=== PATIENT | male | born 1940 | race Caucasian/White ===

== ENCOUNTER 2016-12-26 08:58 | Outpatient (CLI) | payer MEDICARE, OTHER | END 2016-12-26 08:59 | disposition home or self-care (01) | DX: I48.91 Unspecified atrial fibrillation (principal); E11.9 Type 2 diabetes mellitus without complications; N40.1 Benign prostatic hyperplasia with lower urinary tract symptoms; D64.9 Anemia, unspecified ==

== ENCOUNTER 2018-01-19 07:27 | Outpatient (CLI) | payer MEDICARE, OTHER ==
[2018-01-19 12:43] LABS: BASOPHILS % (AUTO) 0.8 %; EOSINOPHILS # (AUTO) 0.3 10^3/uL (0.0-0.7); EOSINOPHILS % (AUTO) 5.5 %; HGB - HEMOGLOBIN 13.6 g/dL (14.0-18.0); LYMPHOCYTES # (AUTO) 2.5 10^3/uL (1.5-3.5); LYMPHOCYTES % (AUTO) 42.2 %; MEAN CORPUSCULAR HGB CONC 34.1 g/dL (32.0-36.0); MEAN PLATELET VOLUME 10.5 fL (7.4-11.4); MONOCYTES # (AUTO) 0.6 10^3/uL (0.0-1.0); MONOCYTES % (AUTO) 9.5 %; NEUTROPHILS # (AUTO) 2.4 10^3/uL (1.5-6.6); PLT - PLATELET COUNT 165 10^3/uL (130-450); RED BLOOD COUNT 4.54 10^6/uL (4.70-6.10); RED CELL DISTRIBUTION WIDTH 14.9 % (12.0-15.0); WHITE BLOOD COUNT 5.8 x10^3/uL (4.8-10.8)
[2018-01-19 13:00] LABS: HB2 TOTAL 14.5 g/dL; HEMOGLOBIN A1C 0.55 g/dL; HEMOGLOBIN A1C % 5.6 % (4.6-6.2)
[2018-01-19 13:22] LABS: CALCIUM 9.1 mg/dL (8.5-10.3); CREATININE 1.1 mg/dL (0.6-1.2)
== END 2018-01-19 07:28 | disposition home or self-care (01) ==
LOC: LAB.WCP 07:27
PROVIDERS: ATTEND Family Medicine
DX: I48.91 Unspecified atrial fibrillation (principal); E11.9 Type 2 diabetes mellitus without complications; D64.9 Anemia, unspecified; R97.20 Elevated prostate specific antigen [PSA]
CPT/HCPCS: 36415; 80048; 83036; 84153; 85025

== ENCOUNTER 2019-02-01 07:59 | Outpatient (CLI) | payer MEDICARE, OTHER ==
[2019-02-01 13:13] LABS: PSA FREE 0.77 ng/mL (0.16-2.81)
[2019-02-01 13:14] LABS: BASOPHILS % (AUTO) 0.3 %; EOSINOPHILS # (AUTO) 0.2 10^3/uL (0.0-0.7); EOSINOPHILS % (AUTO) 3.3 %; HGB - HEMOGLOBIN 13.6 g/dL (14.0-18.0); LYMPHOCYTES # (AUTO) 2.6 10^3/uL (1.5-3.5); LYMPHOCYTES % (AUTO) 42.5 %; MEAN CORPUSCULAR HEMOGLOBIN 29.7 pg (27.0-31.0); MEAN CORPUSCULAR HGB CONC 33.1 g/dL (32.0-36.0); MEAN CORPUSCULAR VOLUME 89.6 fL (80.0-94.0); MEAN PLATELET VOLUME 10.9 fL (7.4-11.4); MONOCYTES # (AUTO) 0.7 10^3/uL (0.0-1.0); MONOCYTES % (AUTO) 10.4 %; NEUTROPHILS # (AUTO) 2.7 10^3/uL (1.5-6.6); NEUTROPHILS % (AUTO) 43.5 %; PLT - PLATELET COUNT 196 10^3/uL (130-450); RED BLOOD COUNT 4.59 10^6/uL (4.70-6.10); RED CELL DISTRIBUTION WIDTH 14.8 % (12.0-15.0); WHITE BLOOD COUNT 6.2 x10^3/uL (4.8-10.8)
[2019-02-01 13:15] LABS: ALBUMIN/GLOBULIN RATIO 1.1 (1.0-2.2); ALKALINE PHOSPHATASE 43 IU/L (42-121); ALT ALANINE AMINOTRANSFERASE 17 IU/L (10-60); AST ASPARTATE AMINOTRANSFERASE 20 IU/L (10-42); BILIRUBIN,TOTAL 0.7 mg/dL (0.2-1.0); BUN - BLOOD UREA NITROGEN 25 mg/dL (6-20); CALCIUM 9.2 mg/dL (8.5-10.3); CARBON DIOXIDE - CO2 27 mmol/L (21-32); CHLORIDE 103 mmol/L (101-111); CHOL/HDL RATIO 3.4 (<5.0); CHOLESTEROL 181 mg/dL; GFR - MDRD 72 (>89); GLUCOSE 119 mg/dL (70-100); HDL CHOLESTEROL 53 mg/dL; LDL CHOLESTEROL,CALCULATED 107 mg/dL; PSA TOTAL 4.19 ng/mL (0.000-2.000); SODIUM 139 mmol/L (135-145); TOTAL PROTEIN 7.6 g/dL (6.7-8.2); VLDL CHOLESTEROL 21 mg/dL
[2019-02-01 13:29] LABS: HB2 TOTAL 14.9 g/dL; HEMOGLOBIN A1C 0.64 g/dL; HEMOGLOBIN A1C % 6.1 % (4.6-6.2)
[2019-02-01 13:45] LABS: PLATELET MORPHOLOGY 1+ GIANT PLATELETS (NORMAL)
[2019-02-01 13:46] LABS: PLATELET ESTIMATE, MANUAL NORMAL (130-450,000) (NORMAL); RBC MORPHOLOGY (MULTIPLE) NORMAL APPEARANCE (NORMAL)
== END 2019-02-01 08:00 | disposition home or self-care (01) ==
LOC: LAB.WCP 07:59
PROVIDERS: ATTEND Family Medicine
DX: E11.9 Type 2 diabetes mellitus without complications (principal); R97.20 Elevated prostate specific antigen [PSA]; E78.5 Hyperlipidemia, unspecified; D64.9 Anemia, unspecified
CPT/HCPCS: 36415; 80053; 80061; 83036; 83721; 84153; 84154; 85025

== ENCOUNTER 2019-06-15 08:00 | Outpatient (CLI) | payer MEDICARE, OTHER ==
[2019-06-15 13:16] LABS: ALBUMIN 3.9 g/dL (3.2-5.5); ALBUMIN/GLOBULIN RATIO 1.1 (1.0-2.2); CALCIUM 9.3 mg/dL (8.5-10.3); CREATININE 0.9 mg/dL (0.6-1.2); TOTAL PROTEIN 7.6 g/dL (6.7-8.2)
== END 2019-06-15 23:59 | disposition home or self-care (01) ==
LOC: LAB.WCP 08:00
PROVIDERS: ATTEND Internal Medicine Cardiovascular Disease
DX: I48.0 Paroxysmal atrial fibrillation (principal); I10 Essential (primary) hypertension
CPT/HCPCS: 36415; 80053

== ENCOUNTER 2020-06-06 06:47 | Outpatient (CLI) | payer MEDICARE, OTHER ==
--- NOTE | 2020-06-06 09:01 | Ultrasound Report ---
PROCEDURE: Aorta Screening INDICATIONS: NICOTINE ADDICTION IN REMISSION TECHNIQUE: Real time scanning was performed of the aorta and iliac arteries, with image documentatio n. COMPARISON: None. FINDINGS: Scattered vascular calcifications are present in the aorta. Aorta: Proximal aortic diameter measures 2.7 cm. Mid-aorta measures 2.7 cm. Distal aortic diameter is 2.1 cm. Iliac arteries: Right common iliac artery measures 1.7 cm. Left common iliac artery measures 1.4 cm . IMPRESSION: Diffuse atherosclerotic plaque. No aneurysm identified Reviewed by: Giles Covarrubias MD on 06/06/2020 9:00 AM PDT Approved by: Giles Covarrubias MD on 06/06/2020 9:00 AM PDT Station ID: [id number]
== END 2020-06-06 06:48 | disposition home or self-care (01) ==
LOC: DI 06:47
PROVIDERS: ATTEND Family Medicine
DX: I70.0 Atherosclerosis of aorta (principal)
CPT/HCPCS: 76706

== ENCOUNTER 2020-10-23 08:00 | Outpatient (CLI) | payer MEDICARE, OTHER ==
[2020-10-23 18:59] LABS: ALBUMIN 4.3 g/dL (3.2-5.5); ALBUMIN/GLOBULIN RATIO 1.1 (1.0-2.2); BILIRUBIN,TOTAL 0.7 mg/dL (0.2-1.0); CALCIUM 9.5 mg/dL (8.5-10.3); CREATININE 0.9 mg/dL (0.6-1.2); TOTAL PROTEIN 8.3 g/dL (6.7-8.2)
[2020-10-23 20:30] LABS: HEMOGLOBIN A1c% 6.9 % (4.27-6.07)
== END 2020-10-23 23:59 | disposition home or self-care (01) ==
LOC: LAB.WCP 08:00
PROVIDERS: ATTEND Family Medicine
DX: E11.9 Type 2 diabetes mellitus without complications (principal)
CPT/HCPCS: 36415; 80053; 83036

== ENCOUNTER 2021-06-04 16:21 | Outpatient (CLI) | payer MEDICARE, OTHER ==
[2021-06-04 21:28] LABS: CREATININE,URINE 141.2 mg/dL; MICROALBUM/CREATININE RATIO,UR 2.1 ug/mg (<30.0); MICROALBUMIN,URINE 0.3 mg/dL (0-300.0)
[2021-06-04 21:30] LABS: ALBUMIN 4.3 g/dL (3.2-5.5); ALBUMIN/GLOBULIN RATIO 1.1 (1.0-2.2); ALKALINE PHOSPHATASE 62 IU/L (42-121); ALT ALANINE AMINOTRANSFERASE 26 IU/L (10-60); AST ASPARTATE AMINOTRANSFERASE 31 IU/L (10-42); BILIRUBIN,TOTAL 0.9 mg/dL (0.2-1.0); BUN - BLOOD UREA NITROGEN 20 mg/dL (6-20); CALCIUM 9.8 mg/dL (8.5-10.3); CARBON DIOXIDE - CO2 26 mmol/L (21-32); CHLORIDE 105 mmol/L (101-111); CHOLESTEROL 192 mg/dL; CREATININE 0.9 mg/dL (0.6-1.2); GFR - MDRD 81 (>89); GLUCOSE 118 mg/dL (70-100); HDL CHOLESTEROL 64 mg/dL; LDL CHOLESTEROL,CALCULATED 108 mg/dL; LDL/HDL RATIO 1.7 (<3.6); MAGNESIUM 2.3 mg/dL (1.7-2.8); POTASSIUM 4.5 mmol/L (3.5-5.0); SODIUM 141 mmol/L (135-145); TOTAL PROTEIN 8.1 g/dL (6.7-8.2); TRIGLYCERIDES 102 mg/dL; VLDL CHOLESTEROL 20 mg/dL
[2021-06-05 11:52] LABS: ESTIMATED AVERAGE GLUCOSE 151 mg/dL (70-100); HEMOGLOBIN A1c% 6.9 % (4.27-6.07)
== END 2021-06-04 16:22 | disposition home or self-care (01) ==
LOC: LAB.N 16:21
PROVIDERS: ATTEND Family Medicine
DX: E11.9 Type 2 diabetes mellitus without complications (principal); E83.42 Hypomagnesemia; M10.9 Gout, unspecified
CPT/HCPCS: 36415; 80053; 80061; 82043; 82570; 83036; 83721; 83735; 84550

== ENCOUNTER 2021-08-22 09:38 | Outpatient (CLI) | payer MEDICARE, OTHER ==
[2021-08-22 10:29] VITALS: BP 142/74
--- NOTE | 2021-08-22 10:29 | SLEEP CARE CONSULTATION ---
Information from patient questionnaire entered by Jing Bolanos MA. I have reviewed and concur with the information entered by Jing Bolanos MA. This document represents the service I personally performed and the decisions made by , Heather Claros ARNP. History of Present Illness Service Date and Time: 08/22/2021 0983 Reason for Visit: New patient, Previously diagnosed sleep apnea, sleep apnea on CPAP therapy Chief Complaint: reports: Other (update supplies) Usual bedtime: 11 pm Time it takes to fall asleep: 10 minutes Snores at night: Yes Observed to quit breathing while asleep: Yes Sleeps alone due to snoring: No Number of times waking at night: 2 Reasons for waking at night: reports: Bathroom Toss, Turn, or Twitch while sleeping: No Recalls having dreams: Yes Usually gets out of bed at: 0730 Feels refreshed in the morning: Yes Morning headache: No Sleepy or fatigued during the day: No Ever fallen asleep while driving: No Takes day naps: No Prior sleep studies: Yes Additional HPI information: ROCKY MARTINEZ was previously diagnosed to have moderate, AHI 22.6, obstructive sleep apnea-hypopnea syndrome and comes in today to establish care for CPAP therapy. - Parasomnia Symptoms Ever been unable to move upon waking from sleep: No Walks in sleep: No Talks in sleep: No Ever acted out dreams in sleep: No Ever felt weak in the knees when startled or emotional: No Bothered by creepy, crawly, restless sensations in legs: No Problems with memory or concentration: No CPAP Compliance Data - Data Reviewed with Patient Average duration of nightly device use: 8 hours 18 minutes Compliance rate %: 99.4 Current pressure setting (cmH2O): 10.0 Average residual AHI: 12.3 Average large leak: 24 minutes 24 seconds Compliance data discussion: He is using a REMstar 60 series. He is using a full face mask that is causing skin irritation/ rash on his chin. He would like to try nasal mask that fits over his nose. He would also like to update his device. He uses [employer] to get his supplies. Subjective Patient concerns: reports: dry mouth, nose, throat (may be due to medications he takes), other (rash on chin). denies: aerophagia, mask discomfort, air blowing in eyes, mask leak noise, condensation in mask/hose, nasal congestion, epistaxis Observed to snore while using device: No Current pressure setting perceived as: comfortable On therapy, patient: reports: sleeping better, awakening more refreshed, being more awake and alert during the day, more rested overall. denies: drowsiness while driving Initial [place] Sleepiness Scale score: 3 (2020) Past Medical History Past Medical History: reports: Hypertension, Arrythmia, GERD, Other (tremors) Social History The patient's occupation is a RE. Patient is and lives in . Have you smoked in the past 12 months: No Cigarettes per day (20/pack): 40 Years of smokin Quit date: 1988 Smoking Pack Years: 60.0 Alcohol use: Yes Alcohol amount and frequency: 3 glasses a wine, 4 a week Caffeine use: Yes Caffeine amount and frequency: 1 cup daily Family History Family history of sleep disordered breathing: No Allergies and Home Medications Drug allergies reviewed: Yes (NKDA) Home medication list reviewed: Yes Allergy and home medication list: Pantoprazole Areds 2 Propranolol Primidone Xarelto Potassium Furosemide Tamsulosin Vitamin D Magnesium Tylenol PM, prn Allopurinol Review of Systems Weight loss over past 5 years: 10 Cardiovascular: reports: high blood pressure Gastrointestinal: reports: heartburn, other (gerd) Urinary: reports: frequency Musculoskeletal: reports: neck pain, back pain Physical Exam Vital signs obtained and entered by: Cici SEGURAMA Blood Pressure: 142/74 (left) Cuff size: wrist Heart Rate: 70 O2 Saturation: 93 (with mask) Height: 5 ft 8 in Weight: 245 lb (with boots) Body Mass Index: 37.2 BMI Classification: Obese Heart: regular rate and rhythm Lungs: clear bilaterally Impression and Plan 1. Obstructive Sleep Apnea-Hypopnea Syndrome, moderate, with good treatment compliance and fair apnea control. On CPAP therapy, the patient has better sleep quality and is more rested overall. Patient is satisfied with current CPAP therapy. He would like to change to a nasal mask because the full face mask is causing a rash on his chin. He does clean it regularly. I will write for a mask refitting for the nasal over the nose cushion mask that he used in past with good results. The patients pressure will be changed to autoCPAP 12 cmH20 for elevation of residual AHI. Patient advised to contact me if pressure change is uncomfortable so that it can be adjusted. Goals for apnea control discussed. I informed the patient that [employer] has a recall on several devices like the patients machine. Patient denies any black particles seen in machine or hoses, any unusual odors coming from device. Patient has not experienced any physical symptoms such as upper airway irritation, headache, skin or eye irritation, asthma, nausea/vomiting, difficulty breathing or chest pain. If patient is not able to sleep due to waking up choking, gasping for air or other respiratory distress that they may decide to continue using it until it is either replaced or repaired. Since the patients current machine is at least 5 years old the patient is opting to update their device with a device that is not on the recall. Patient voiced understanding and agreement with plan. Patient's apnea severity and rationale for treatment to reduce apnea, improve sleep quality and reduce cardiovascular and cerebrovascular events was reviewed. I also reviewed the benefit of consistent device use of CPAP for hypertension, arrhythmia and gastric reflux. Patient has lost about 10 pounds since May. He has been walking about 1.5 miles a day. Patient was encouraged to continue to try to lose weight for their overall health and to reduce apneas. * Change auto CPAP pressure to 12 cmH2O * Update device * Mask refitting for a nasal cushion mask, over the nose ([facility]) * Update supplies as needed * Notify me if snoring with mask or feeling that the pressure is too much or too little * Continue to try to lose weight * Call this office if any problems using CPAP * Return for follow up one month after obtaining new device, or sooner if concerns arise Counseling Topics: Spare mask, Weight loss health impact Visit Type: In Office Time Spent with Patient (minutes): 31 Provider Statement: I spent 100% of the Face to Face Visit with the patient with greater than 50% spent counseling the patient and coordination of care.
== END 2021-08-22 09:39 | disposition home or self-care (01) ==
LOC: SC 09:38
PROVIDERS: ATTEND Nurse Practitioner Family
DX: G47.33 Obstructive sleep apnea (adult) (pediatric) (principal); E66.9 Obesity, unspecified; Z68.37 Body mass index [BMI] 37.0-37.9, adult
CPT/HCPCS: 99203; G0463; 99212

== ENCOUNTER 2021-08-27 20:48 | Outpatient (CLI) | payer MEDICARE, OTHER | END 2021-08-27 20:49 | disposition EMS.NT | LOC: EMS 20:48 | DX: S00.01XA Abrasion of scalp, initial encounter (principal); W22.01XA Walked into wall, initial encounter; Y93.01 Activity, walking, marching and hiking; Y92.009 Unspecified place in unspecified non-institutional (private) residence as the place of occurrence of the external cause ==

== ENCOUNTER 2021-11-01 15:39 | Outpatient (CLI) | payer MEDICARE, OTHER ==
--- NOTE | 2021-11-01 18:06 | CT Report ---
PROCEDURE: HEAD WO INDICATIONS: ESSENTIAL TREMOR TECHNIQUE: Noncontrast 4.5 mm thick angled axial sections acquired from the foramen magnum to the vertex. For r adiation dose reduction, the following was used: automated exposure control, adjustment of mA and/or kV according to patient size. COMPARISON: None. FINDINGS: Image quality: Excellent. CSF spaces: Basal cisterns are patent. No extra-axial fluid collections. Ventricles are normal in size and shape. Brain: No midline shift. No intracranial masses or hemorrhage. Elizondo-white matter interface is norm al. Age-appropriate brain parenchymal volume loss and chronic small vessel ischemic change can be se en. Skull and face: Calvarium and visualized facial bones are intact, without suspicious lesions. Sinuses: Visualized sinuses and mastoids are clear. IMPRESSION: Unremarkable noncontrast head CT for age, with note made of brain parenchymal volume loss and chronic small vessel ischemic change. Reviewed by: Andrew Ha MD on 11/01/2021 5:05 PM [facility] Approved by: Andrew Ha MD on 11/01/2021 5:05 PM [facility] Station ID: [id number]
== END 2021-11-01 15:40 | disposition home or self-care (01) ==
LOC: DI 15:39
PROVIDERS: ATTEND Neurological Surgery
DX: G25.0 Essential tremor (principal); G31.89 Other specified degenerative diseases of nervous system; I67.82 Cerebral ischemia

== ENCOUNTER 2023-07-21 11:20 | Outpatient (CLI) | payer MEDICARE, OTHER ==
[2023-07-21 11:03] VITALS: BP 120/72
--- NOTE | 2023-07-21 11:09 | SLEEP CARE CONSULTATION ---
History of Present Illness Service Date and Time: 07/21/2023 1040 Previous diagnosis: Moderate, Obstructive Sleep Apnea-Hypopnea Syndrome AHI: 22.6 (in 2006) Reason for follow up: annual (Aug 2021) Equipment type: CPAP (ResMed Airsense 11, s/u 01/2022) Equipment obtained from: [employer] (getting supplies as needed) Mask style: Full face Mask brand: Resmed (Airtouch [id number]) Backup mask available: Yes Last cushion change: Jun 12 Prior sleep studies: Yes Year and Where: [facility] 2006 Sleep Study - Results Prior sleep studies: Yes CPAP Compliance Data - Data Reviewed with Patient Average duration of nightly device use: 7 hours 19 minutes Compliance rate %: 99 (183/184 days used; 01/2023-07/21/2023) Current pressure setting (cmH2O): 12 Average residual AHI: 5.6 (unknown 2) Central apnea: 0.7 Obstructive apnea: 1.7 Hypopnea: 1.2 Average large leak: 33.6 L/min Subjective Patient concerns: denies: aerophagia, mask discomfort, air blowing in eyes, mask leak noise, condensation in mask/hose, nasal congestion, dry mouth, nose, throat, epistaxis Observed to snore while using device: No Current pressure setting perceived as: comfortable On therapy, patient: reports: sleeping better, awakening more refreshed, being more awake and alert during the day, more rested overall. denies: drowsiness while driving Initial [place] Sleepiness Scale score: 3 (2020) Current [place] Sleepiness Scale score: 5 Allergies and Home Medications Known drug allergies: No Drug allergies reviewed: Yes Home medication list reviewed: Yes (no changes) Allergy and home medication list: Allergies No Known Drug Allergies Allergy Review of Systems Review of systems same as previous: Yes (no changes) Physical Exam Vital signs obtained and entered by: Heather Panchal NP Blood Pressure: 120/72 (per pt) Height: 5 ft 9 in (per pt) Weight: 220 lb (per pt) Weight change since last visit: 25 lb loss Body Mass Index: 32.5 BMI Classification: Obese Impression and Plan 1. Obstructive Sleep Apnea-Hypopnea Syndrome, moderate, with good treatment compliance and good apnea control with minimally elevated residual AHI. On CPAP therapy, the patient has better sleep quality and is more rested overall. He states he just needs supplies today. He does have a minimally elevated residual AHI but he is getting good therapy and I do not feel we need to make any changes today. Patient has significant improvement of their sleep apnea and is satisfied with current CPAP therapy. Patient denies problems with oral dryness, nasal congestion, epistaxis, skin irritation or aerophagia. Patient's apnea severity and rationale for treatment to reduce apnea, improve sleep quality and reduce cardiovascular and cerebrovascular events was reviewed. I also reviewed the benefit of consistent device use of CPAP for hypertension, arrhythmia and gastric reflux. 2. Obesity, unspecified. Currently patients BMI is 32.5. He has lost weight by walking every day and cutting back on alcohol. Is watching what he eats. Obesity increases the risk of apnea, CPAP pressure requirements and overall health risks especially cardiovascular and diabetes. Thus patient is advised to continue to try to lose weight. * Continue auto CPAP pressure at 12 cmH2O * Update supply prescription * Notify me if snoring with mask or feeling that the pressure is too much or too little * Attempt to lose weight * Call this office if any problems using CPAP * Return for follow up in 1 year, or sooner if concerns arise Counseling Topics: Spare mask, Weight loss health impact Prescriptions: Device supplies Follow up with Sleep Care in: 1 year Visit Type: Telehealth Phone Video Type: Sana Patient Location: Home Location of Provider: Office Patient agrees and consents to this telehealth visit type: Yes Patient agrees to have their insurance billed: Yes Time Spent with Patient (minutes): 20 Provider Statement: I spent 100% of the Telehealth Phone Call with the patient with greater than 50% spent counseling the patient and coordination of care.
== END 2023-07-21 11:21 | disposition home or self-care (01) ==
LOC: SC 11:20
PROVIDERS: ATTEND Nurse Practitioner Family
DX: G47.33 Obstructive sleep apnea (adult) (pediatric) (principal); E66.9 Obesity, unspecified; Z68.32 Body mass index [BMI] 32.0-32.9, adult

== ENCOUNTER 2023-09-11 07:58 | Outpatient (CLI) | payer MEDICARE, OTHER ==
[2023-09-11 12:28] LABS: BASOPHILS # (AUTO) 0.1 10^3/uL (0.0-0.1); BASOPHILS % (AUTO) 0.7 %; EOSINOPHILS # (AUTO) 0.2 10^3/uL (0.0-0.7); EOSINOPHILS % (AUTO) 3.1 %; HCT - HEMATOCRIT 39.5 % (42.0-52.0); LYMPHOCYTES # (AUTO) 2.8 10^3/uL (1.5-3.5); LYMPHOCYTES % (AUTO) 41.8 %; MEAN CORPUSCULAR HEMOGLOBIN 29.1 pg (27.0-31.0); MEAN CORPUSCULAR HGB CONC 32.9 g/dL (32.0-36.0); MEAN CORPUSCULAR VOLUME 88.6 fL (80.0-94.0); MEAN PLATELET VOLUME 12.2 fL (7.4-11.4); MONOCYTES # (AUTO) 0.6 10^3/uL (0.0-1.0); MONOCYTES % (AUTO) 9.5 %; NEUTROPHILS % (AUTO) 44.6 %; PLT - PLATELET COUNT 220 10^3/uL (130-450); RED BLOOD COUNT 4.46 10^6/uL (4.70-6.10); RED CELL DISTRIBUTION WIDTH 14.6 % (12.0-15.0); WHITE BLOOD COUNT 6.7 x10^3/uL (4.8-10.8)
[2023-09-11 12:49] LABS: ALBUMIN 4.2 g/dL (3.2-5.5); ALBUMIN/GLOBULIN RATIO 1.3 (1.0-2.2); ALKALINE PHOSPHATASE 47 IU/L (42-121); ALT ALANINE AMINOTRANSFERASE 9 IU/L (10-60); AST ASPARTATE AMINOTRANSFERASE 16 IU/L (10-42); BILIRUBIN,TOTAL 0.5 mg/dL (0.2-1.0); BUN - BLOOD UREA NITROGEN 17 mg/dL (6-20); CALCIUM 9.7 mg/dL (8.5-10.3); CARBON DIOXIDE - CO2 28 mmol/L (21-32); CHLORIDE 105 mmol/L (101-111); CHOL/HDL RATIO 3.3 (<5.0); CHOLESTEROL 173 mg/dL; CREATININE 0.9 mg/dL (0.6-1.3); GFR - MDRD 81 (>89); GLUCOSE 127 mg/dL (74-104); HDL CHOLESTEROL 53 mg/dL; LDL CHOLESTEROL,CALCULATED 106 mg/dL; POTASSIUM 4.2 mmol/L (3.5-4.5); SODIUM 140 mmol/L (135-145); TOTAL PROTEIN 7.4 g/dL (6.4-8.9); TRIGLYCERIDES 72 mg/dL (48-352); URIC ACID 7.1 mg/dL (4.4-7.6); VLDL CHOLESTEROL 14 mg/dL
[2023-09-11 13:07] LABS: THYROID STIMULATING HORMONE 2.69 uIU/mL (0.34-5.60)
[2023-09-11 13:11] LABS: ESTIMATED AVERAGE GLUCOSE 134 mg/dL (70-100); HEMOGLOBIN A1c% 6.3 % (4.27-6.07)
== END 2023-09-11 07:59 | disposition home or self-care (01) ==
LOC: LAB.N 07:58
PROVIDERS: ATTEND Physician Assistant
DX: I10 Essential (primary) hypertension (principal); E11.39 Type 2 diabetes mellitus with other diabetic ophthalmic complication; R97.20 Elevated prostate specific antigen [PSA]; M10.9 Gout, unspecified
CPT/HCPCS: 36415; 80053; 80061; 83036; 83721; 84153; 84443; 84550; 85025

== ENCOUNTER 2024-02-11 10:37 | Outpatient (CLI) | payer MEDICARE, OTHER | END 2024-02-11 10:38 | disposition home or self-care (01) | LOC: LAB.N 10:37 | PROVIDERS: ATTEND Physician Assistant Medical | DX: R97.20 Elevated prostate specific antigen [PSA] (principal) | CPT/HCPCS: 36415; 84153; 84154 ==

== ENCOUNTER 2024-03-25 08:59 | Outpatient (CLI) | payer MEDICARE, OTHER ==
--- NOTE | 2024-03-25 09:51 | XRAY Report ---
PROCEDURE: Foot 3+V LT INDICATIONS: LEFT FOOT PAIN TECHNIQUE: 3 views of the foot were acquired. COMPARISON: None. FINDINGS: Bones: There is suggestion of hammertoe deformities involving second and third toe and mild hallux va lgus with weightbearing. Mild to moderate left foot joint osteoarthritic changes are seen more notabl y involving TMT joints and interphalangeal joints. No fractures or dislocations. No suspicious bony lesions. Well-defined plantar calcaneal enthesophyte is seen. Soft tissues: No tibiotalar joint effusion. Achilles tendon appears normal. 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 Mild hallux valgus and hammertoe deformities involving sec ond and third toes. No fracture or dislocation. Calcaneal enthesophytes. Reviewed by: Mykel Null MD on 03/25/2024 9:49 AM PDT Approved by: Mykel Null MD on 03/25/2024 9:49 AM PDT Station ID: [id number]
--- NOTE | 2024-03-25 10:14 | XRAY Report ---
PROCEDURE: Hand 3+V LT INDICATIONS: LEFT HAND PAIN TECHNIQUE: 3 views of the hand(s) acquired. COMPARISON: None. FINDINGS: Bones: No fractures or dislocations. Moderate osteoarthritic changes throughout left hand and wrist joints are seen most notably involving scaphotrapezial joint and first CMC joint . Subtle subcortical radiolucencies are noted throughout carpal bones, third and fourth metacarpal bases, and possibly fi rst, third and fourth metacarpal heads. No suspicious bony lesions. Soft tissues: No suspicious soft tissue calcifications or masses. IMPRESSION: Moderate left hand and wrist joint osteoarthritis most notably involving first CMC joint and scaphotr apezial joint. No fracture or dislocation. Radiolucencies involving multiple carpal bones and metacarpal bones as described above concerning for subtle erosive changes secondary to inflammatory arthropathy suggest clinical correlation. Reviewed by: Mykel Null MD on 03/25/2024 10:12 AM PDT Approved by: Mykel Null MD on 03/25/2024 10:12 AM PDT Station ID: [id number]
== END 2024-03-25 09:00 | disposition home or self-care (01) ==
LOC: DI 08:59
PROVIDERS: ATTEND Physician Assistant
DX: M19.072 Primary osteoarthritis, left ankle and foot (principal); M20.12 Hallux valgus (acquired), left foot; M77.32 Calcaneal spur, left foot; M19.032 Primary osteoarthritis, left wrist; M19.042 Primary osteoarthritis, left hand; M18.12 Unilateral primary osteoarthritis of first carpometacarpal joint, left hand

== ENCOUNTER 2024-03-30 15:28 | Outpatient (CLI) | payer MEDICARE, OTHER ==
[2024-03-30 18:11] LABS: RHEUMATOID FACTOR NEGATIVE (Negative)
== END 2024-03-30 15:29 | disposition home or self-care (01) ==
LOC: LAB.N 15:28
PROVIDERS: ATTEND Physician Assistant
DX: M13.80 Other specified arthritis, unspecified site (principal)
CPT/HCPCS: 36415; 85651; 86038; 86140; 86430